=== PATIENT | female | born 1965 | race Native Hawaiian/Other Pacific Islander ===

== ENCOUNTER 2016-12-25 12:45 | Outpatient (CLI) | payer BC ==
[~2016-12-25 12:45] MED LIST: ACYCLOVIR800 MG PO; AMBIEN5 MG PO; CITALOPRAM40 MG PO; HUMALOG100 MG/ML SC; HYDR10TA47 PO; LANTUS100 MG/ML SC; LOSA50TA PO; OXYC5TAB53 PO; SIMV20TA2 PO
== END 2016-12-25 14:00 | disposition home or self-care (01) ==
LOC: MAMMO 12:45
DX: Z12.31 Encounter for screening mammogram for malignant neoplasm of breast (principal)

== ENCOUNTER 2017-03-13 13:51 | Outpatient (CLI) | payer OTHER | END 2017-03-13 22:05 | disposition home or self-care (01) | LOC: RAD 13:51 | DX: J40 Bronchitis, not specified as acute or chronic (principal) ==

== ENCOUNTER 2017-08-06 09:12 | Outpatient (CLI) | payer OTHER | END 2017-08-06 21:43 | disposition home or self-care (01) | LOC: US 09:12 | DX: E04.8 Other specified nontoxic goiter (principal) ==

== ENCOUNTER 2019-11-15 11:02 | Outpatient (CLI) | payer OTHER | END 2019-11-15 19:18 | disposition home or self-care (01) | LOC: RAD 11:02 | DX: R05 Cough (principal) ==

== ENCOUNTER 2019-11-18 09:45 | Outpatient (CLI) | payer OTHER | END 2019-11-18 23:36 | disposition home or self-care (01) | LOC: RESP 09:45 | DX: R94.31 Abnormal electrocardiogram [ECG] [EKG] (principal) ==

== ENCOUNTER 2019-11-25 07:39 | Outpatient (CLI) | payer OTHER | END 2019-11-25 23:23 | disposition home or self-care (01) | LOC: NM 07:39 | DX: R94.31 Abnormal electrocardiogram [ECG] [EKG] (principal) | CPT/HCPCS: A9500 ==

== ENCOUNTER 2020-06-15 07:55 | Outpatient (CLI) | payer OTHER ==
[~2020-06-15] VITALS: Ht 167.6 cm; Wt 73.9 kg
== END 2020-06-15 20:51 | disposition home or self-care (01) ==
LOC: DIABINF 07:55
PROVIDERS: ATTEND Internal Medicine Endocrinology, Diabetes & Metabolism
DX: E10.65 Type 1 diabetes mellitus with hyperglycemia (principal); Z79.4 Long term (current) use of insulin; G47.09 Other insomnia; F41.1 Generalized anxiety disorder; F33.9 Major depressive disorder, recurrent, unspecified; F98.8 Other specified behavioral and emotional disorders with onset usually occurring in childhood and adolescence; E55.9 Vitamin D deficiency, unspecified; D86.9 Sarcoidosis, unspecified; M32.9 Systemic lupus erythematosus, unspecified; E78.2 Mixed hyperlipidemia; I73.00 Raynaud's syndrome without gangrene
CPT/HCPCS: 82948; 96365; 96366; 96521; 99204; J1718; J1815

== ENCOUNTER 2020-06-16 07:55 | Outpatient (CLI) | payer OTHER ==
[~2020-06-16] VITALS: Ht 167.6 cm; Wt 73.9 kg
== END 2020-06-16 19:18 | disposition home or self-care (01) ==
LOC: DIABINF 07:55
PROVIDERS: ATTEND Internal Medicine Endocrinology, Diabetes & Metabolism
DX: E10.65 Type 1 diabetes mellitus with hyperglycemia (principal); Z79.4 Long term (current) use of insulin; G47.09 Other insomnia; F41.1 Generalized anxiety disorder; F33.9 Major depressive disorder, recurrent, unspecified; F98.8 Other specified behavioral and emotional disorders with onset usually occurring in childhood and adolescence; E55.9 Vitamin D deficiency, unspecified; D86.9 Sarcoidosis, unspecified; M32.9 Systemic lupus erythematosus, unspecified; E78.2 Mixed hyperlipidemia; I73.00 Raynaud's syndrome without gangrene
CPT/HCPCS: 82948; 96365; 96366; 96521; 99214; J1718; J1815

== ENCOUNTER 2020-06-29 07:44 | Outpatient (CLI) | payer OTHER ==
[~2020-06-29] VITALS: Ht 167.6 cm; Wt 73.9 kg
== END 2020-06-29 19:19 | disposition home or self-care (01) ==
LOC: DIABINF 07:44
PROVIDERS: ATTEND Internal Medicine Endocrinology, Diabetes & Metabolism
DX: E10.65 Type 1 diabetes mellitus with hyperglycemia (principal); Z79.4 Long term (current) use of insulin; G47.09 Other insomnia; F41.1 Generalized anxiety disorder; F33.9 Major depressive disorder, recurrent, unspecified; F98.8 Other specified behavioral and emotional disorders with onset usually occurring in childhood and adolescence; E55.9 Vitamin D deficiency, unspecified; D86.89 Sarcoidosis of other sites; M32.8 Other forms of systemic lupus erythematosus; E78.2 Mixed hyperlipidemia; I73.00 Raynaud's syndrome without gangrene
CPT/HCPCS: 82948; 96365; 96366; 96521; 99214; J1718; J1815

== ENCOUNTER 2020-06-30 07:52 | Outpatient (CLI) | payer OTHER ==
[~2020-06-30] VITALS: Ht 167.6 cm; Wt 73.9 kg
== END 2020-06-30 21:45 | disposition home or self-care (01) ==
LOC: DIABINF 07:52
PROVIDERS: ATTEND Internal Medicine Endocrinology, Diabetes & Metabolism
DX: E10.65 Type 1 diabetes mellitus with hyperglycemia (principal); Z79.4 Long term (current) use of insulin; G47.09 Other insomnia; F41.1 Generalized anxiety disorder; F33.9 Major depressive disorder, recurrent, unspecified; F98.8 Other specified behavioral and emotional disorders with onset usually occurring in childhood and adolescence; E55.9 Vitamin D deficiency, unspecified; D86.89 Sarcoidosis of other sites; M32.8 Other forms of systemic lupus erythematosus; E78.2 Mixed hyperlipidemia; I73.00 Raynaud's syndrome without gangrene
CPT/HCPCS: 82948; 96365; 96366; 96521; 99214; J1718; J1815

== ENCOUNTER 2020-07-05 07:55 | Outpatient (CLI) | payer OTHER ==
[~2020-07-05] VITALS: Ht 167.6 cm; Wt 73.9 kg
== END 2020-07-05 19:17 | disposition home or self-care (01) ==
LOC: DIABINF 07:55
PROVIDERS: ATTEND Internal Medicine Endocrinology, Diabetes & Metabolism
DX: E10.65 Type 1 diabetes mellitus with hyperglycemia (principal); Z79.4 Long term (current) use of insulin; G47.09 Other insomnia; F41.8 Other specified anxiety disorders; F32.89 Other specified depressive episodes; F98.8 Other specified behavioral and emotional disorders with onset usually occurring in childhood and adolescence; E55.9 Vitamin D deficiency, unspecified; D86.89 Sarcoidosis of other sites; L93.2 Other local lupus erythematosus; E78.2 Mixed hyperlipidemia; I73.00 Raynaud's syndrome without gangrene
CPT/HCPCS: 82948; 96365; 96366; 96521; 99214; J1815; J1817

== ENCOUNTER 2020-07-07 07:59 | Outpatient (CLI) | payer OTHER ==
[~2020-07-07] VITALS: Ht 167.6 cm; Wt 69.4 kg
== END 2020-07-07 21:46 | disposition home or self-care (01) ==
LOC: DIABINF 07:59
PROVIDERS: ATTEND Internal Medicine Endocrinology, Diabetes & Metabolism
DX: E10.65 Type 1 diabetes mellitus with hyperglycemia (principal); Z79.4 Long term (current) use of insulin; G47.09 Other insomnia; F41.1 Generalized anxiety disorder; F33.9 Major depressive disorder, recurrent, unspecified; F98.8 Other specified behavioral and emotional disorders with onset usually occurring in childhood and adolescence; E55.9 Vitamin D deficiency, unspecified; D86.89 Sarcoidosis of other sites; M32.8 Other forms of systemic lupus erythematosus; E78.2 Mixed hyperlipidemia; I73.00 Raynaud's syndrome without gangrene
CPT/HCPCS: 82948; 96365; 96366; 96521; J1815; J1817

== ENCOUNTER 2020-07-12 07:51 | Outpatient (CLI) | payer OTHER ==
[~2020-07-12] VITALS: Ht 167.6 cm; Wt 73.9 kg
== END 2020-07-12 20:37 | disposition home or self-care (01) ==
LOC: DIABINF 07:51
PROVIDERS: ATTEND Internal Medicine Endocrinology, Diabetes & Metabolism
DX: E10.65 Type 1 diabetes mellitus with hyperglycemia (principal); Z79.4 Long term (current) use of insulin; G47.09 Other insomnia; F41.1 Generalized anxiety disorder; F33.9 Major depressive disorder, recurrent, unspecified; F98.8 Other specified behavioral and emotional disorders with onset usually occurring in childhood and adolescence; E55.9 Vitamin D deficiency, unspecified; D86.89 Sarcoidosis of other sites; M32.9 Systemic lupus erythematosus, unspecified; E78.2 Mixed hyperlipidemia; I73.00 Raynaud's syndrome without gangrene
CPT/HCPCS: 82948; 96365; 96366; 96521; J1815; J1817

== ENCOUNTER 2020-07-13 12:50 | Outpatient (CLI) | payer OTHER ==
[~2020-07-13] VITALS: Ht 167.6 cm; Wt 73.9 kg
== END 2020-07-13 23:19 | disposition home or self-care (01) ==
LOC: DIABINF 12:50
PROVIDERS: ATTEND Internal Medicine Endocrinology, Diabetes & Metabolism
DX: E10.65 Type 1 diabetes mellitus with hyperglycemia (principal); Z79.4 Long term (current) use of insulin; G47.09 Other insomnia; F41.1 Generalized anxiety disorder; F33.0 Major depressive disorder, recurrent, mild; F98.8 Other specified behavioral and emotional disorders with onset usually occurring in childhood and adolescence; E55.9 Vitamin D deficiency, unspecified; D86.89 Sarcoidosis of other sites; M32.9 Systemic lupus erythematosus, unspecified; E78.2 Mixed hyperlipidemia; I73.00 Raynaud's syndrome without gangrene
CPT/HCPCS: 82948; 96365; 96366; 96521; J1815; J1817

== ENCOUNTER 2020-07-21 07:31 | Outpatient (CLI) | payer OTHER ==
[~2020-07-21] VITALS: Ht 167.6 cm; Wt 73.9 kg
== END 2020-07-21 22:15 | disposition home or self-care (01) ==
LOC: DIABINF 07:31
PROVIDERS: ATTEND Internal Medicine Endocrinology, Diabetes & Metabolism
DX: E10.65 Type 1 diabetes mellitus with hyperglycemia (principal); Z79.4 Long term (current) use of insulin; G47.09 Other insomnia; F41.1 Generalized anxiety disorder; F33.0 Major depressive disorder, recurrent, mild; F98.8 Other specified behavioral and emotional disorders with onset usually occurring in childhood and adolescence; E55.9 Vitamin D deficiency, unspecified; D86.89 Sarcoidosis of other sites; M32.9 Systemic lupus erythematosus, unspecified; E78.2 Mixed hyperlipidemia; I73.00 Raynaud's syndrome without gangrene
CPT/HCPCS: 82948; 96365; 96366; 96521; J1815; J1817

== ENCOUNTER 2020-07-28 07:35 | Outpatient (CLI) | payer OTHER ==
[~2020-07-28] VITALS: Ht 167.6 cm; Wt 73.9 kg
== END 2020-07-28 22:40 | disposition home or self-care (01) ==
LOC: DIABINF 07:35
PROVIDERS: ATTEND Internal Medicine Endocrinology, Diabetes & Metabolism
DX: E10.65 Type 1 diabetes mellitus with hyperglycemia (principal); Z79.4 Long term (current) use of insulin; G47.09 Other insomnia; F41.1 Generalized anxiety disorder; F33.0 Major depressive disorder, recurrent, mild; F98.8 Other specified behavioral and emotional disorders with onset usually occurring in childhood and adolescence; E55.9 Vitamin D deficiency, unspecified; D86.89 Sarcoidosis of other sites; M32.9 Systemic lupus erythematosus, unspecified; E78.2 Mixed hyperlipidemia; I73.00 Raynaud's syndrome without gangrene
CPT/HCPCS: 82948; 96365; 96366; 96521; J1815; J1817

== ENCOUNTER 2020-08-04 07:34 | Outpatient (CLI) | payer OTHER ==
[~2020-08-04] VITALS: Ht 167.6 cm; Wt 73.9 kg
== END 2020-08-04 19:51 | disposition home or self-care (01) ==
LOC: DIABINF 07:34
PROVIDERS: ATTEND Internal Medicine Endocrinology, Diabetes & Metabolism
DX: E10.65 Type 1 diabetes mellitus with hyperglycemia (principal); Z79.4 Long term (current) use of insulin; G47.09 Other insomnia; F41.1 Generalized anxiety disorder; F33.0 Major depressive disorder, recurrent, mild; F98.8 Other specified behavioral and emotional disorders with onset usually occurring in childhood and adolescence; E55.9 Vitamin D deficiency, unspecified; D86.89 Sarcoidosis of other sites; M32.9 Systemic lupus erythematosus, unspecified; E78.2 Mixed hyperlipidemia; I73.00 Raynaud's syndrome without gangrene
CPT/HCPCS: 82948; 96365; 96366; 96521; J1815; J1817

== ENCOUNTER 2020-08-11 07:58 | Outpatient (CLI) | payer OTHER ==
[~2020-08-11] VITALS: Ht 167.6 cm; Wt 73.9 kg
== END 2020-08-11 18:56 | disposition home or self-care (01) ==
LOC: DIABINF 07:58
PROVIDERS: ATTEND Internal Medicine Endocrinology, Diabetes & Metabolism
DX: E10.65 Type 1 diabetes mellitus with hyperglycemia (principal); Z79.4 Long term (current) use of insulin; G47.09 Other insomnia; F41.1 Generalized anxiety disorder; F33.0 Major depressive disorder, recurrent, mild; F98.8 Other specified behavioral and emotional disorders with onset usually occurring in childhood and adolescence; E55.9 Vitamin D deficiency, unspecified; D86.89 Sarcoidosis of other sites; M32.9 Systemic lupus erythematosus, unspecified; E78.2 Mixed hyperlipidemia; I73.00 Raynaud's syndrome without gangrene
CPT/HCPCS: 82948; 96365; 96366; 96521; J1815; J1817

== ENCOUNTER 2020-08-15 07:38 | Outpatient (CLI) | payer OTHER ==
[~2020-08-15] VITALS: Ht 167.6 cm; Wt 73.9 kg
== END 2020-08-15 19:17 | disposition home or self-care (01) ==
LOC: DIABINF 07:38
PROVIDERS: ATTEND Internal Medicine Endocrinology, Diabetes & Metabolism
DX: E10.65 Type 1 diabetes mellitus with hyperglycemia (principal); Z79.4 Long term (current) use of insulin; G47.09 Other insomnia; F41.1 Generalized anxiety disorder; F33.8 Other recurrent depressive disorders; F98.8 Other specified behavioral and emotional disorders with onset usually occurring in childhood and adolescence; E55.9 Vitamin D deficiency, unspecified; D86.9 Sarcoidosis, unspecified; L93.2 Other local lupus erythematosus; E78.2 Mixed hyperlipidemia; I73.00 Raynaud's syndrome without gangrene
CPT/HCPCS: 82948; 96365; 96366; 96521; J1815; J1817

== ENCOUNTER 2020-08-15 09:25 | Outpatient (CLI) | payer OTHER ==
[2020-08-15 09:49] LABS: PLATELET COUNT 226 K/uL (152-353)
[2020-08-15 10:10] LABS: POTASSIUM 4.1 mmol/L (3.6-5.2)
== END 2020-08-15 19:20 | disposition home or self-care (01) ==
LOC: LAB 09:25
PROVIDERS: ATTEND Nurse Practitioner Family
DX: I10 Essential (primary) hypertension (principal); Z13.29 Encounter for screening for other suspected endocrine disorder; Z13.220 Encounter for screening for lipoid disorders; R53.83 Other fatigue; E53.8 Deficiency of other specified B group vitamins; E55.9 Vitamin D deficiency, unspecified; E10.9 Type 1 diabetes mellitus without complications
CPT/HCPCS: 80053; 80061; 82306; 82607; 83036; 84439; 84443; 85027

== ENCOUNTER 2020-08-25 07:51 | Outpatient (CLI) | payer OTHER ==
[~2020-08-25] VITALS: Ht 167.6 cm; Wt 73.9 kg
== END 2020-08-25 11:30 | disposition home or self-care (01) ==
LOC: DIABINF 07:51
PROVIDERS: ATTEND Internal Medicine Endocrinology, Diabetes & Metabolism
DX: E10.9 Type 1 diabetes mellitus without complications (principal); Z79.4 Long term (current) use of insulin; I10 Essential (primary) hypertension; E78.2 Mixed hyperlipidemia; G47.09 Other insomnia; F41.1 Generalized anxiety disorder; F98.8 Other specified behavioral and emotional disorders with onset usually occurring in childhood and adolescence; D86.9 Sarcoidosis, unspecified; L93.2 Other local lupus erythematosus; I73.00 Raynaud's syndrome without gangrene; E55.9 Vitamin D deficiency, unspecified
CPT/HCPCS: 82948; 96365; 96366; 96521; J1815; J1817

== ENCOUNTER 2020-09-01 07:59 | Outpatient (CLI) | payer OTHER ==
[~2020-09-01] VITALS: Ht 167.6 cm; Wt 73.9 kg
== END 2020-09-01 23:00 | disposition home or self-care (01) ==
LOC: DIABINF 07:59
PROVIDERS: ATTEND Internal Medicine Endocrinology, Diabetes & Metabolism
DX: E10.65 Type 1 diabetes mellitus with hyperglycemia (principal); Z79.4 Long term (current) use of insulin; G47.09 Other insomnia; F41.1 Generalized anxiety disorder; F33.8 Other recurrent depressive disorders; F98.8 Other specified behavioral and emotional disorders with onset usually occurring in childhood and adolescence; E55.9 Vitamin D deficiency, unspecified; D86.9 Sarcoidosis, unspecified; L93.2 Other local lupus erythematosus; E78.2 Mixed hyperlipidemia; I73.00 Raynaud's syndrome without gangrene
CPT/HCPCS: 82948; 96365; 96366; 96521; J1815; J1817

== ENCOUNTER 2020-09-08 08:03 | Outpatient (CLI) | payer OTHER ==
[~2020-09-08] VITALS: Ht 167.6 cm; Wt 73.9 kg
== END 2020-09-08 21:50 | disposition home or self-care (01) ==
LOC: DIABINF 08:03
PROVIDERS: ATTEND Internal Medicine Endocrinology, Diabetes & Metabolism
DX: E10.65 Type 1 diabetes mellitus with hyperglycemia (principal); Z79.4 Long term (current) use of insulin; G47.09 Other insomnia; F41.1 Generalized anxiety disorder; F33.8 Other recurrent depressive disorders; F98.8 Other specified behavioral and emotional disorders with onset usually occurring in childhood and adolescence; E55.9 Vitamin D deficiency, unspecified; D86.9 Sarcoidosis, unspecified; L93.2 Other local lupus erythematosus; E78.2 Mixed hyperlipidemia; I73.00 Raynaud's syndrome without gangrene
CPT/HCPCS: 82948; 96365; 96366; 96521; J1815; J1817

== ENCOUNTER 2020-09-08 08:06 | Outpatient (CLI) | payer OTHER | END 2020-09-08 21:51 | disposition home or self-care (01) | LOC: LABW 08:06 | PROVIDERS: ATTEND Internal Medicine Endocrinology, Diabetes & Metabolism | DX: E10.9 Type 1 diabetes mellitus without complications (principal); Z79.4 Long term (current) use of insulin; F98.8 Other specified behavioral and emotional disorders with onset usually occurring in childhood and adolescence; G47.00 Insomnia, unspecified; F41.9 Anxiety disorder, unspecified; D86.9 Sarcoidosis, unspecified; E55.9 Vitamin D deficiency, unspecified; E78.2 Mixed hyperlipidemia; M32.9 Systemic lupus erythematosus, unspecified; I73.00 Raynaud's syndrome without gangrene | CPT/HCPCS: 36415; 80053; 80061; 82306; 83036; 83525; 84681 ==

== ENCOUNTER 2020-09-22 07:49 | Outpatient (CLI) | payer OTHER ==
[~2020-09-22] VITALS: Ht 167.6 cm; Wt 74.4 kg
== END 2020-09-22 19:05 | disposition home or self-care (01) ==
LOC: DIABINF 07:49
PROVIDERS: ATTEND Internal Medicine Endocrinology, Diabetes & Metabolism
DX: E10.65 Type 1 diabetes mellitus with hyperglycemia (principal); Z79.4 Long term (current) use of insulin; G47.09 Other insomnia; F41.1 Generalized anxiety disorder; F33.0 Major depressive disorder, recurrent, mild; F98.8 Other specified behavioral and emotional disorders with onset usually occurring in childhood and adolescence; E55.9 Vitamin D deficiency, unspecified; D86.89 Sarcoidosis of other sites; M32.9 Systemic lupus erythematosus, unspecified; E78.2 Mixed hyperlipidemia; I73.00 Raynaud's syndrome without gangrene
CPT/HCPCS: 82948; 96365; 96366; 96521; J1815; J1817

== ENCOUNTER 2020-10-06 07:49 | Outpatient (CLI) | payer OTHER ==
[~2020-10-06] VITALS: Ht 167.6 cm; Wt 74.4 kg
== END 2020-10-06 19:55 | disposition home or self-care (01) ==
LOC: DIABINF 07:49
PROVIDERS: ATTEND Internal Medicine Endocrinology, Diabetes & Metabolism
DX: E10.9 Type 1 diabetes mellitus without complications (principal); Z79.4 Long term (current) use of insulin; I10 Essential (primary) hypertension; E78.2 Mixed hyperlipidemia; G47.09 Other insomnia; F41.1 Generalized anxiety disorder; F98.8 Other specified behavioral and emotional disorders with onset usually occurring in childhood and adolescence; D86.89 Sarcoidosis of other sites; M32.9 Systemic lupus erythematosus, unspecified; I73.00 Raynaud's syndrome without gangrene; E55.9 Vitamin D deficiency, unspecified
CPT/HCPCS: 82948; 96365; 96366; 96521; J1815; J1817

== ENCOUNTER → 2020-10-26 | Outpatient (CLI) | payer OTHER | LOC: DIABINF 10-20 08:30 | PROVIDERS: ATTEND Internal Medicine Endocrinology, Diabetes & Metabolism | DX: E10.9 Type 1 diabetes mellitus without complications (principal); Z79.4 Long term (current) use of insulin; I10 Essential (primary) hypertension; E78.2 Mixed hyperlipidemia; G47.09 Other insomnia; F41.1 Generalized anxiety disorder; F98.8 Other specified behavioral and emotional disorders with onset usually occurring in childhood and adolescence; D86.89 Sarcoidosis of other sites; M32.9 Systemic lupus erythematosus, unspecified; I73.00 Raynaud's syndrome without gangrene; E55.9 Vitamin D deficiency, unspecified | CPT/HCPCS: 82948; 96365; 96366; 96521; J1817 ==

== ENCOUNTER 2020-12-26 16:38 | Outpatient (CLI) | payer OTHER ==
[2020-12-26 16:54] LABS: PLATELET COUNT 276 K/uL (152-353)
[2020-12-26 17:09] LABS: POTASSIUM 4.5 mmol/L (3.6-5.2); SODIUM 136 mmol/L (136-145)
== END 2020-12-26 20:10 | disposition home or self-care (01) ==
LOC: LABW 16:38
PROVIDERS: ATTEND Nurse Practitioner Family
DX: R10.13 Epigastric pain (principal); R07.9 Chest pain, unspecified
CPT/HCPCS: 36415; 80053; 82150; 82550; 82553; 83690; 84484; 85027; 86318

== ENCOUNTER 2021-01-29 09:57 | Outpatient (CLI) | payer OTHER ==
[2021-01-29 10:46] LABS: PLATELET COUNT 271 K/uL (152-353)
[2021-01-29 11:19] LABS: POTASSIUM 4.3 mmol/L (3.6-5.2)
== END 2021-01-29 21:00 | disposition home or self-care (01) ==
LOC: MAMMO 09:57
PROVIDERS: ATTEND Internal Medicine
DX: Z12.31 Encounter for screening mammogram for malignant neoplasm of breast (principal); N18.31 Chronic kidney disease, stage 3a; R53.83 Other fatigue; Z13.89 Encounter for screening for other disorder; E10.9 Type 1 diabetes mellitus without complications; M32.8 Other forms of systemic lupus erythematosus; Z79.899 Other long term (current) drug therapy; K12.0 Recurrent oral aphthae; M35.00 Sjogren syndrome, unspecified; M72.2 Plantar fascial fibromatosis; G90.1 Familial dysautonomia [Riley-Day]
CPT/HCPCS: 36415; 80053; 81000; 82043; 82306; 82330; 82570; 82607; 82728; 82746; 83036; 83540; 83550; 83735; 83970; 84100; 84155; 84439; 84443; 85027; 85652; 86038

== ENCOUNTER 2021-02-05 09:59 | Outpatient (CLI) | payer OTHER | END 2021-02-05 19:18 | disposition home or self-care (01) | LOC: US 09:59 → RAD 09:59 → US 10:00 → RAD 19:18 | PROVIDERS: ATTEND Nurse Practitioner Family | DX: M25.552 Pain in left hip (principal) ==

== ENCOUNTER 2021-07-23 13:54 | Outpatient (CLI) | payer OTHER | END 2021-07-23 19:01 | disposition home or self-care (01) | LOC: US 13:54 | PROVIDERS: ATTEND Nurse Practitioner Family | DX: N39.3 Stress incontinence (female) (male) (principal) ==

== ENCOUNTER 2022-10-23 13:15 | Outpatient (CLI) | payer OTHER | END 2022-10-23 21:22 | disposition home or self-care (01) | LOC: MAMMO 13:15 | PROVIDERS: ATTEND Nurse Practitioner Family | DX: Z12.31 Encounter for screening mammogram for malignant neoplasm of breast (principal); R05.9 Cough, unspecified; Z13.6 Encounter for screening for cardiovascular disorders ==

== ENCOUNTER 2022-10-23 13:43 | Outpatient (CLI) | payer OTHER | END 2022-10-23 21:23 | disposition home or self-care (01) | LOC: CT 13:43 | PROVIDERS: ATTEND Nurse Practitioner Family | DX: Z13.6 Encounter for screening for cardiovascular disorders (principal) ==

== ENCOUNTER 2022-11-14 11:56 | Outpatient (CLI) | payer OTHER | END 2022-11-14 18:49 | disposition home or self-care (01) | LOC: CT 11:56 | PROVIDERS: ATTEND Nurse Practitioner Family | DX: R05.3 Chronic cough (principal) ==